=== PATIENT | male | born 1970 | race Caucasian/White ===

== ENCOUNTER 2023-10-22 08:20 | Outpatient (CLI) | payer OTHER, SELFPAY ==
--- NOTE | ~2023-10-22 | US_ITS ---
Ultrasound soft tissues of the abdomen. Doppler was used as needed for this exam.) Ordering provider: Wu IrvinMD History: . Umbilical Hernia . Comparison: None. FINDINGS/impression: 2.3 cm umbilical hernia was seen with bowel content. Reviewed, dictated and finalized at location A.
== END 2023-10-22 08:21 | disposition home or self-care (01) ==
LOC: CHSIMG 08:24
PROVIDERS: PCP Family Medicine; Visit Provider Family Medicine
DX: K42.9 Umbilical hernia without obstruction or gangrene (principal)
CPT/HCPCS: 76705